=== PATIENT | female | born 1930 | race Asian ===

== ENCOUNTER 2019-03-17 11:34 | Emergency (ER) | payer OTHER ==
[~2019-03-17] VITALS: Ht 152.4 cm; Wt 54.4 kg
[~2019-03-17 11:34] MED LIST: BONIVA150 M1 PO; FLUTICASON0.05 MG/Ac; GLIPIZIDE5 MG PO; GOOD SENSE ASPI81 M3 PO; IBU400 M1 PO; JANUVIA100 M1 PO; LORAZEPAM0.5 MG PO; NOR10 PO; ZESTRIL10 MG PO; [UNRECOGNIZED DRUG - REMARK]; [UNRECOGNIZED DRUG - REMARK]
[2019-03-17 11:44] VITALS: Ht 152.4 cm; Wt 54.4 kg
[2019-03-17 12:36] LABS: BASOPHIL % 0.2 % (0-2); PLATELET COUNT 183 x10^3mcL (130-400)
[2019-03-17 12:50] LABS: RED CELL DISTRIBUTION WIDTH 17.2 % (11.5-14.5)
[2019-03-17 13:09] LABS: T3 TOTAL 0.89 ng/mL
[2019-03-17 13:25] LABS: ALKALINE PHOSPHATASE 46 U/L (46-116); ALT/SGPT 22 U/L (14-59); AST/SGOT 13 U/L (15-37); BILIRUBIN TOTAL 0.72 mg/dL (0.20-1.00); CALCIUM 8.5 mg/dL (8.5-10.1); CARBON DIOXIDE 16.3 mmol/L (21-32); CHLORIDE SERUM 101 mmol/L (98-107); CREATININE SERUM 2.1 mg/dL (0.6-1.0); GLUCOSE SERUM 227 mg/dL (74-106); HDL CHOLESTEROL 39 mg/dL (40-60); LIPASE 206 IU/L (73-393); POTASSIUM SERUM 4.7 mmol/L (3.5-5.1); SODIUM SERUM 136 mmol/L (136-145); TOTAL PROTEIN, SERUM 7.6 g/dL (6.4-8.2); TRIGLYCERIDES 89 mg/dL (<150)
[2019-03-17 13:28] LABS: ALBUMIN 2.8 g/dL (3.4-5.0); CHOLESTEROL 101 mg/dL (<200); CHOLESTEROL/HDL RATIO 2.6
[2019-03-17 14:00] LABS: FREE T4 1.5 ng/dL (0.76-1.46); FREE THYROXINE INDEX 3.2 ug/dL (1.4-4.5); T4(THYROXINE) 8.2 ug/dL (4.7-13.3)
[2019-03-17] MEDS ORDERED: LOSARTAN POTASS25 M1 PO (14:09)
[2019-03-17] MEDS ORDERED: JARDIANCE10 MG PO (14:10)
[2019-03-17] MEDS ORDERED: LIPI20 PO (14:10)
[2019-03-17] MEDS ORDERED: XARELTO10 M1 PO (14:11)
[2019-03-17] MEDS ORDERED: METFORMIN HYD1000 M2 PO (14:12)
[2019-03-17] MEDS ORDERED: ALENDRONATE SOD70 M3 (14:12)
[2019-03-17] MEDS ORDERED: MEG40 PO (14:13)
[2019-03-17] MEDS ORDERED: MICROZIDE12.5 MG PO (14:13)
[2019-03-17 16:14] LABS: microscopic required? YES; urine erythrocyte TRACE (NEGATIVE)
[2019-03-17 18:24] VITALS: BP 111/60
== END 2019-03-17 18:24 | disposition short-term general hospital (02) ==
LOC: ED 11:34
PROVIDERS: Specialist
DX: I82.412 Acute embolism and thrombosis of left femoral vein (principal); I48.2 Chronic atrial fibrillation; E86.0 Dehydration; N39.0 Urinary tract infection, site not specified; I10 Essential (primary) hypertension; E11.9 Type 2 diabetes mellitus without complications; Z98.890 Other specified postprocedural states
CPT/HCPCS: 82962; 83880; 84439; J0696; J1650; J7030; J7040; J7060; Q0092